=== PATIENT | female | born 1970 | race Caucasian/White ===

== ENCOUNTER 2016-08-26 21:28 | Emergency (ER) | payer BC ==
[~2016-08-26] VITALS: Ht 162.6 cm; Wt 104.3 kg
--- NOTE | ~2016-08-26 | EKG ---
PATIENT: BIJU ABREU UNIT #: [id number] Ventricular Rate: 87 BPM Atrial Rate: 87 BPM P-R Interval: 158 ms QRS Duration: 74 ms Q-T Interval: 380 ms QTC Calculation(Bezet): 457 ms P [place]: 40 degrees Calculated R [place]: 27 degrees Calculated T [place]: 52 degrees Diagnosis Line: Normal sinus rhythm Diagnosis Line: Possible Left atrial enlargement Diagnosis Line: Borderline ECG Diagnosis Line: When compared with ECG of 19-NOV-2015 05:02, Diagnosis Line: No significant change was found Diagnosis Line: Confirmed by DARIEN BATEMAN MD ([id number]) on Diagnosis Line: 08/27/2016 9:36:24 AM INTERPRETING MD: BHAVANA NEAL
--- NOTE | ~2016-08-26 | CR72 ---
[facility] A Service of [facility] & [facility] RADIOLOGY TEXT RESULTS PATIENT: BIJU ABREU LOCATION: [facility] : 66 UNIT #: [id number] AGE: [address]: Himanshu Hunter MD SEX: F ORDER DR: [id number] [facility] [address] [place], [place] [address] [id number] E MR#: [id number] Acc #: [id number] NAME: BIJU ABREU : 1970 SEX: F STUDY DATE/TIME: 08/26/2016 23:06 UNIT: [facility] ROOM: STUDY DESCRIPTION: CR Chest Single View Portable Attending Physician: Himanshu Hunter M.D. Ordering Physician: Himanshu Hunter M.D. Primary Care Physician: Adrien Yun M.D. MEDICAL IMAGING REPORT This report is preliminary unless electronic signature is present EXAM Portable chest INDICATIONS Chest pain and shortness of air today. PROCEDURE Frontal view chest COMPARISON 11/19/2015 FINDINGS Heart size is stable. No dense consolidation, pleural fluid or pneumothorax. IMPRESSION No active process. Dictated by... Tuan Bates M.D. THIS IS AN ELECTRONICALLY VERIFIED REPORT Tuan Bates M.D. at 08/27/2016 10:04 PM Miladys TD: 08/27/2016 09:33 JOB #: [id number] MEDICAL IMAGING REPORT Page 1 of 1 COPY
--- NOTE | ~2016-08-26 | EKG ---
PATIENT: BIJU ABREU UNIT #: [id number] Ventricular Rate: 82 BPM Atrial Rate: 82 BPM P-R Interval: 166 ms QRS Duration: 80 ms Q-T Interval: 426 ms QTC Calculation(Bezet): 497 ms P [place]: 43 degrees Calculated R [place]: 20 degrees Calculated T [place]: 41 degrees Diagnosis Line: Normal sinus rhythm Diagnosis Line: Possible Left atrial enlargement Diagnosis Line: Low voltage QRS Diagnosis Line: Prolonged QT Diagnosis Line: Abnormal ECG Diagnosis Line: When compared with ECG of 26-AUG-2016 21:37, Diagnosis Line: (unconfirmed) Diagnosis Line: No significant change was found Diagnosis Line: Confirmed by DARIEN BATEMAN MD ([id number]) on Diagnosis Line: 08/27/2016 9:36:55 AM INTERPRETING MD: BHAVANA NEAL
[~2016-08-26 21:28] MED LIST: ADVAIR 250-501 EACH IH; ALBUTEROL MININEB NEB; ALBUTEROL17 GM INH; ANORO ELLIPTA1 EACH IH; BACTRIM DS TABL1 TA1 PO; LOSARTAN PO; MEDROL4 MG/DOSE- PO; OMEPRAZOLE PO; PHENERGAN PO; PREDNISONE PO; TYLENOL #3 PO; ZOFRAN PO
[2016-08-26 23:28] LABS: BASOPHIL# 0.1 X10e3 (0-0.3); BASOPHIL% 0.6 % (0-2.5); EOSINOPHIL# 0.1 X10e3 (0-0.7); EOSINOPHIL% 0.6 % (0.0-7.0); HEMATOCRIT 47.4 % (35.0-45.0); LYMPHOCYTE% 16.9 % (17.0-45.0); MEAN CELL VOLUME 94.3 FL (83-96); MEAN CORPUSCULAR HEMOGLOBIN 31.8 PG (28-34); MEAN CORPUSCULAR HGB CONC 33.7 g/dL (30-36); MEAN PLATELET VOLUME 9.6 FL (6.5-11.5); MONOCYTE# 1.1 X10e3 (0-1.0); NEUTROPHIL# 8.7 X10e3 (1.5-7.1); NEUTROPHIL% 72.9 % (40-75); PLATELET COUNT 160 X10e3 (140-420); RED BLOOD COUNT 5.03 X10e (3.90-5.30); RED CELL DISTRIBUTION WIDTH 13.5 % (11.0-15.5); WHITE BLOOD COUNT 11.9 X10e3 (4.0-10.5)
[2016-08-26 23:29] LABS: DIFF IND NO
[2016-08-26 23:43] LABS: POC - CKMB <1.0 ng/mL (0.0-7.9); POC - TROPONIN <0.05 ng/mL (<=0.05)
[2016-08-26 23:54] LABS: BILIRUBIN, DIRECT 0.3 mg/dL (0.0-0.2); BILIRUBIN,INDIRECT 1.2 mg/dL (0.0-0.9); BILIRUBIN,TOTAL 1.5 mg/dL (0.2-2.0); BUN/CREATININE RATIO 12.77; CREATININE SERUM 1.8 mg/dL (0.6-1.4); GLOM FILT RATE Estimated 32.9 mL/min (>60); POTASSIUM 3.4 mmol/L (3.5-5.1); PROTEIN TOTAL SERUM 9.2 g/dL (6.0-8.3)
[2016-08-27 01:07] LABS: POC - CKMB 1.2 ng/mL (0.0-7.9); POC - TROPONIN <0.05 ng/mL (<=0.05)
== END 2016-08-27 02:04 | disposition home or self-care (01) ==
LOC: CED 21:28
PROVIDERS: Emergency Medicine
DX: J45.909 Unspecified asthma, uncomplicated (principal); F17.200 Nicotine dependence, unspecified, uncomplicated
CPT/HCPCS: 36415; 71010; 80048; 80076; 82553; 83880; 84484; 85025; 93005; 94640; 99285